=== PATIENT | female | born 1955 ===

== ENCOUNTER 2017-04-22 18:29 | Observation (INO) | payer OTHER ==
[2017-04-22] MEDS ORDERED: Labetalol 5 mg/ml Inj 20ML IV PRN (18:45)
[2017-04-22 18:58] VITALS: O2SAT 100
--- NOTE | 2017-04-22 19:01 | CT ---
PROCEDURE: CT HEAD WITHOUT CONTRAST. HISTORY: right facial numbness COMPARISON: None available. TECHNIQUE: Axial computed tomography images were obtained through the head/brain without intravenous contrast. Radiation dose: Total exam DLP = 899.91 mGy-cm. This CT exam was performed using one or more of the following dose reduction techniques: Automated exposure control, adjustment of the mA and/or kV according to patient size, and/or use of iterative reconstruction technique. FINDINGS: HEMORRHAGE: No intracranial hemorrhage. BRAIN: No mass effect or edema. Mild scattered white matter hypodensities, which are nonspecific, but often seen with chronic microvascular ischemic disease. VENTRICLES: Cavum septum pellucidum, anatomic variant. No hydrocephalus. CALVARIUM: Unremarkable. PARANASAL SINUSES: Unremarkable as visualized. No significant inflammatory changes. MASTOID AIR CELLS: Unremarkable as visualized. No inflammatory changes. OTHER FINDINGS: None. IMPRESSION: Mild scattered nonspecific white matter changes. Please note that MRI with diffusion imaging is more sensitive in the detection of acute ischemic event. Findings discussed with Dr. Woodson on 04/22/17 at 6:59 p.m.
--- NOTE | 2017-04-22 19:06 | ED PDOC ---
Arrival/HPI - General Chief Complaint: Chest Pain Time Seen by Provider: 04/22/17 18:42 Historian: Patient - History of Present Illness Narrative History of Present Illness (Text): 04/22/17 19:06 A 61 year old female, whose past medical history includes hypertension, presents to the emergency department complaining of right sided facial numbness since 17:30 today. Patient reports unsteady gait, a mild headache and non- radiating chest discomfort. Patient recently had her blood pressure medication changed due to uncontrolled hypertension. No prior history of CAD or CVA. Patient denies any other deficits, vision changes, fever, chills, nausea, vomiting, abdominal pain, shortness of breath or any other complaints. Time/Duration: Other (05:30 today) Past Medical History - Provider Review Nursing Documentation Reviewed: Yes - Infectious Disease Hx of Infectious Diseases: None - Cardiac Hx Hypertension: Yes - Psychiatric Hx Substance Use: No Family/Social History - Physician Review Nursing Documentation Reviewed: Yes Family/Social History: No Known Family HX Smoking Status: Never Smoked Hx Alcohol Use: No Hx Substance Use: No Allergies/Home Meds Allergies/Adverse Reactions: Allergies No Known Allergies Allergy (Verified 04/22/17 18:36) Home Medications: Home Meds Medication Instructions Recorded Confirmed Unobtainable 04/22/17 04/22/17 Review of Systems - Physician Review All systems were reviewed & negative as marked: Yes - Review of Systems Constitutional: absent: Fevers, Night Sweats Eyes: absent: Vision Changes Respiratory: absent: SOB Cardiovascular: Chest Pain Gastrointestinal: absent: Abdominal Pain, Nausea, Vomiting Neurological: Headache, Focal Weakness (right sided facial numbness), Gait Changes (unsteady gait) Physical Exam Vital Signs Reviewed: Yes Vital Signs Temp Pulse Resp BP Pulse Ox 04/22/17 19:45 48 L 16 122/67 100 04/22/17 18:59 98 F 51 L 16 130/75 100 04/22/17 18:39 58 L 14 155/74 H 100 Temperature: Afebrile Blood Pressure: Hypertensive Pulse: Bradycardic Respiratory Rate: Normal Appearance: Positive for: Well-Appearing, Non-Toxic, Comfortable Pain Distress: None Mental Status: Positive for: Alert and Oriented X 3 - Systems Exam Head: Present: Atraumatic, Normocephalic Pupils: Present: PERRL Extroacular Muscles: Present: EOMI Conjunctiva: Present: Normal Mouth: Present: Moist Mucous Membranes Neck: Present: Normal Range of Motion. No: JVD Respiratory/Chest: Present: Clear to Auscultation (in all lung francois), Good Air Exchange. No: Respiratory Distress, Accessory Muscle Use Cardiovascular: Present: Regular Rate and Rhythm, Normal S1, S2. No: Murmurs Abdomen: Present: Normal Bowel Sounds. No: Tenderness, Distention, Peritoneal Signs, Rebound, Guarding Back: Present: Normal Inspection Upper Extremity: Present: Normal Inspection. No: Cyanosis, Edema Lower Extremity: Present: Normal Inspection. No: Edema Neurological: Present: GCS=15, CN II-XII Intact, Speech Normal, Motor Func Grossly Intact (equal strength 5/5 bilaterally), Gait Normal, Other (No facial asymmetry, no neurological deficits). No: Normal Sensory Function (Questional decreased sensation to right side of face) Skin: Present: Warm, Dry, Normal Color. No: Rashes Psychiatric: Present: Alert, Oriented x 3, Normal Insight, Normal Concentration Medical Decision Making ED Course and Treatment: 04/22/17 19:06 Impression: A 61 year old female with right sided facial numbness. Patient notes unsteady gait, mild headache and non-radiating chest pain. Plan: -- Head CT -- Chest xray -- EKG -- Labs -- Urinalysis -- Aspirin and K-dur -- Reassess and disposition Progress Notes: Case discussed with neurologist Dr. Cardona, who reports patient is not a candidate for tPA due to low NIH score of 1. Patient will be treated medically for hypertension and possible stroke. - Lab Interpretations Lab Results: 04/22/17 18:42 04/22/17 18:42 Lab Results 04/22/17 18:42: Sodium 140, Potassium 3.2 L, Chloride 99, Carbon Dioxide 29, Anion Gap 15, BUN 10, Creatinine 0.8, Est GFR ( Amer) > 60, Est GFR (Non- Af Amer) > 60, Random Glucose 101, Calcium 10.2, Total Bilirubin 0.7, AST 41 H, ALT 31, Alkaline Phosphatase 76, Troponin I < 0.01, Total Protein 7.9, Albumin 4.4, Globulin 3.5, Albumin/Globulin Ratio 1.3, Triglycerides 62, Cholesterol 180 , LDL Cholesterol Direct 86, HDL Cholesterol 67 H 04/22/17 18:42: PT 11.3, INR 0.99 04/22/17 18:42: WBC 8.2, RBC 3.98, Hgb 11.8 L, Hct 35.5 L, MCV 89.2, MCH 29.6, MCHC 33.2, RDW 11.8, Plt Count 347, MPV 9.9, Gran % 37.5 L, Lymph % (Auto) 55.0 H, [place] % (Auto) 6.5 H, Eos % (Auto) 0.9 L, Baso % (Auto) 0.1, Gran # 3.07, Lymph # (Auto) 4.5 H, [place] # (Auto) 0.5, Eos # (Auto) 0.1, Baso # (Auto) 0.01 I have reviewed the lab results: Yes - RAD Interpretation Radiology Orders: 04/22/17 18:44 HEAD W/O (CODE STROKE) [CT] Stat 04/22/17 18:48 CHEST PORTABLE [RAD] Stat - Medication Orders Current Medication Orders: Discontinued Medications Aspirin (Aspirin) 325 mg PO STAT STA Stop: 04/22/17 19:16 Last Admin: 04/22/17 19:33 Dose: 325 mg Potassium Chloride (K-Dur 20 Meq Er Tab) 20 meq PO STAT STA Stop: 04/22/17 19:38 NIHSS Scale ([place]) Time Performed: 18:42 - How Severe is the Stoke Baseline Level of Consciousness: 0=Alert LOC to Questions: 0=Both comments correct LOC to commands: 0=Obeys both correctly Best Gaze: 0=Normal Visual: 0=No visual loss Facial: 0=Normal Motor Arm - Left: 0=No drift Motor Arm - Right: 0=No drift Motor Leg - Left: 0=No drift Motor Leg - Right: 0=No drift Limb Ataxia: 0=Absent Sensory: 1=Mild to moderate loss Best Language: 0=No aphasia Dysarthia: 0=Normal articulation Extinction & Inattention (Neglect): 0=Normal, no object Score: 1 Risk Level: Minor Stroke Risk rTPA Inclusion/Exclusion - Refusal of Treatment Patient Refused Treatment: No - Inclusion Criteria for Altepase Patient is 18 years or Older: Yes The Clinical Diagnosis of Ischemic Stroke That is Causing a Potentially Disabling Neurological Deficit: No Time of Onset is Well Established to be Less Than 270 Minute Before Treatment Would Begin: Yes Risk/Benefit Discussed With Patient/Family Member Present: No Disposition/Present on Arrival - Present on Arrival Any Indicators Present on Arrival: No History of DVT/PE: No History of Uncontrolled Diabetes: No Urinary Catheter: No History of Decub. Ulcer: No History Surgical Site Infection Following: None - Disposition Have Diagnosis and Disposition been Completed?: Yes Diagnosis: CVA (cerebral vascular accident) Disposition: HOSPITALIZED Disposition Time: 20:10 Patient Plan: Admission Condition: IMPROVED Referrals: Eagle Oneill MD [Primary Care Provider] - Follow up with primary Forms: [facility] ([place]ian)
[2017-04-22 19:11] LABS: ALB/GLOB RATIO 1.3 (1.1-1.8); ALBUMIN 4.4 g/dL (3.0-4.8); ALT/SGPT 31 U/L (7-56); AST/SGOT 41 U/L (14-36); BLOOD UREA NITROGEN 10 mg/dL (7-21); CALCIUM 10.2 mg/dL (8.4-10.5); GFR AFRICAN-AMERICAN > 60; GFR NON-AFRICAN AMERICAN > 60; HDL CHOLESTEROL 67 mg/dL (29-60)
[2017-04-22 19:21] LABS: LDL CHOLESTEROL 86 mg/dL (0-129); TROPONIN I < 0.01 ng/mL
[2017-04-22] MEDS ORDERED: Potassium Chloride 20 mEq ER Tab PO STA ×2 (19:37→20:23)
[2017-04-22 19:51] LABS: BASO # 0.01 K/mm3 (0.0-2.0); BASO % 0.1 % (0.0-3.0); EOS # 0.1 (0.0-0.7); EOS % 0.9 % (1.5-5.0); GRAN # 3.07 (1.4-6.5); GRAN % 37.5 % (50.0-68.0); HEMOGLOBIN 11.8 g/dL (12.0-16.0); LYMPH # 4.5 (1.2-3.4); MEAN CELL VOLUME 89.2 fl (80.0-105.0); MEAN CORPUSCULAR HEMOGLOBIN 29.6 pg (25.0-35.0); MEAN CORPUSCULAR HGB CONC 33.2 g/dl (31.0-37.0); MEAN PLATELET VOLUME 9.9 fl (7.0-11.0); MONO # 0.5 (0.1-0.6); MONO % 6.5 % (1.0-6.0); RBC 3.98 10^6/uL (3.5-6.1); RED CELL DISTRIBUTION WIDTH 11.8 % (11.5-14.5); WHITE BLOOD COUNT 8.2 10^3/ul (4.5-11.0)
[2017-04-22 19:55] LABS: INR 0.99 (0.93-1.08); PROTHROMBIN TIME 11.3 SECONDS (9.4-12.5)
[2017-04-22 20:07] LABS: PH,URINE 6.5 (4.7-8.0); URINE BILIRUBIN NEGATIVE (NEGATIVE); URINE BLOOD TRACE-INTACT (NEGATIVE); URINE GLUCOSE (UA) NEGATIVE (NEGATIVE); URINE LEUKOCYTE ESTERASE SMALL Leu/uL (NEGATIVE); URINE NITRATE NEGATIVE (NEGATIVE); URINE PROTEIN NEGATIVE mg/dL (<30 mg/dL); URINE UROBILINOGEN 0.2 E.U./dL (<1 E.U./dL)
[2017-04-22 20:23] LABS: URINE APPEARANCE CLEAR (CLEAR); URINE COLOR STRAW (YELLOW)
[2017-04-22 20:50] LABS: URINE BACTERIA SMALL (NEG); URINE EPITHELIAL CELLS 0 - 2 /hpf (0-5); URINE RBC 0 - 2 /hpf (0-2)
--- NOTE | 2017-04-22 21:00 | CP.PCM.HP ---
<Natali Grimm - Last Filed: 04/22/17 23:20> History of Present Illness - History of Present Illness History of Present Illness: This patient is a 61 year old female with a PMHx of hypertension and HLD who presents with complaints of right sided facial numbness and non-radiating "pinching" 6-8/10 chest pain that started at 17:30 today. Patient denies any triggering event. She states she was slightly short of breath when her symptoms occurred but hasn't been since she has been in the ED. Associated with the chest pain and facial numbness are palpitations, headache, and slight dizziness. Patient states she has been getting palpitations on and off for the past couple of months. She currently denies any focal muscle weakness or sensory loss but states that she felt unbalanced when entering the ED and needed assistance from her daughter. She was able to ambulate to the restroom herself while in the ED. She denies any fevers, nausea, vomiting, current SOB, abdominal pain, or any urinary symptoms. Her facial numbness has resolved since being in the ED. ROS: As stated above PMHx: HTN, HLD, PSHx: Appendectomy, Removal of benign breast mass Allergeis: NKDA SocialHx: Denies tobacco, alcohol, or illicit drug use FamHx: Mother - [place] Disease Meds: Reviewed PMD: Dr. Eagle Oneill Present on Admission - Present on Admission Any Indicators Present on Admission: No Review of Systems - Review of Systems Review of Systems: As per HPI Past Patient History - Infectious Disease Hx of Infectious Diseases: None - Past Social History Smoking Status: Never Smoked - CARDIAC Hx Hypertension: Yes - PSYCHIATRIC Hx Substance Use: No - SURGICAL HISTORY Hx Surgeries: No Meds Allergies/Adverse Reactions: Allergies Allergy/AdvReac Type Severity Reaction Status Date / Time No Known Allergies Allergy Verified 04/22/17 22:08 Physical Exam - Constitutional Appears: Well, Non-toxic, No Acute Distress - Head Exam Head Exam: ATRAUMATIC, NORMAL INSPECTION, NORMOCEPHALIC - Eye Exam Eye Exam: EOMI, Normal appearance, PERRL - ENT Exam ENT Exam: Mucous Membranes Moist - Neck Exam Neck exam: Positive for: Normal Inspection - Respiratory Exam Respiratory Exam: Clear to Auscultation Bilateral, NORMAL BREATHING PATTERN. absent: Accessory Muscle Use, Respiratory Distress - Cardiovascular Exam Cardiovascular Exam: Bradycardia, REGULAR RHYTHM, +S1, +S2. absent: JVD - GI/Abdominal Exam GI & Abdominal Exam: Normal Bowel Sounds, Soft. absent: Tenderness - Extremities Exam Extremities exam: Positive for: normal capillary refill, normal inspection. Negative for: pedal edema - Neurological Exam Neurological exam: Alert, CN II-XII Intact, Oriented x3 Additional comments: 5/5 Motor Strength in Upper Lower Ext. B/L. - Psychiatric Exam Psychiatric exam: Normal Affect, Normal Mood - Skin Skin Exam: Dry, Intact, Normal Color, Warm Results - Vital Signs Recent Vital Signs: Last Vital Signs Temp 98 F 04/22/17 18:59 Pulse 48 L 04/22/17 19:45 Resp 16 04/22/17 19:45 BP 122/67 04/22/17 19:45 Pulse Ox 100 04/22/17 19:45 - Labs Result Diagrams: 04/22/17 18:42 04/22/17 18:42 Labs: Laboratory Results - last 24 hr 04/22/17 04/22/17 04/22/17 18:42 18:42 18:42 WBC 8.2 RBC 3.98 Hgb 11.8 L Hct 35.5 L MCV 89.2 MCH 29.6 MCHC 33.2 RDW 11.8 Plt Count 347 MPV 9.9 Gran % 37.5 L Lymph % (Auto) 55.0 H [place] % (Auto) 6.5 H Eos % (Auto) 0.9 L Baso % (Auto) 0.1 Gran # 3.07 Lymph # (Auto) 4.5 H [place] # (Auto) 0.5 Eos # (Auto) 0.1 Baso # (Auto) 0.01 PT 11.3 INR 0.99 Sodium 140 Potassium 3.2 L Chloride 99 Carbon Dioxide 29 Anion Gap 15 BUN 10 Creatinine 0.8 Est GFR ( Amer) > 60 Est GFR (Non-Af Amer) > 60 Random Glucose 101 Calcium 10.2 Total Bilirubin 0.7 AST 41 H ALT 31 Alkaline Phosphatase 76 Troponin I < 0.01 Total Protein 7.9 Albumin 4.4 Globulin 3.5 Albumin/Globulin Ratio 1.3 Triglycerides 62 Cholesterol 180 LDL Cholesterol Direct 86 HDL Cholesterol 67 H Urine Color Urine Appearance Urine pH Ur Specific [place] Urine Protein Urine Glucose (UA) Urine Ketones Urine Blood Urine Nitrate Urine Bilirubin Urine Urobilinogen Ur Leukocyte Esterase Urine RBC Urine WBC Ur Epithelial Cells Urine Bacteria 04/22/17 19:55 WBC RBC Hgb Hct MCV MCH MCHC RDW Plt Count MPV Gran % Lymph % (Auto) [place] % (Auto) Eos % (Auto) Baso % (Auto) Gran # Lymph # (Auto) [place] # (Auto) Eos # (Auto) Baso # (Auto) PT INR Sodium Potassium Chloride Carbon Dioxide Anion Gap BUN Creatinine Est GFR ( Amer) Est GFR (Non-Af Amer) Random Glucose Calcium Total Bilirubin AST ALT Alkaline Phosphatase Troponin I Total Protein Albumin Globulin Albumin/Globulin Ratio Triglycerides Cholesterol LDL Cholesterol Direct HDL Cholesterol Urine Color Straw Urine Appearance Clear Urine pH 6.5 Ur Specific [place] <= 1.005 Urine Protein Negative Urine Glucose (UA) Negative Urine Ketones Negative Urine Blood Trace-intact H Urine Nitrate Negative Urine Bilirubin Negative Urine Urobilinogen 0.2 Ur Leukocyte Esterase Small H Urine RBC 0 - 2 Urine WBC 1 - 3 Ur Epithelial Cells 0 - 2 Urine Bacteria Small Assessment & Plan - Assessment and Plan (Free Text) Assessment: 61 year old female with a PMHx of hypertension and HLD who presents with complaints of right sided facial numbness and non-radiating "pinching" 6-8/10 chest pain. Admitted for evaluation and treatment of chest pain and facial numbness. Plan: Chest Pain R/O ACS: 1st. Troponin was negative. EKG (Adm): Sinus Bradycardia ASA 325 Given in ED CXR: Negative for Acute Disease Process. PENDING Official Read. Serial Troponins/EKG TSH/Free T4 Cardiology Consult (Dr. Mazariegos) Cont. Home Medications: Metoprolol, ASA, Cozaar, Lipitor Right Sided Facial Numbness. R/O CVA (Resolved) NIHSS Scale of 1 Neurology Consulted (Dr. Cardona) in ED. Recommended ASA 325 CT Head (Adm): Mild scattered nonspecific white matter changes. Facial Numbness Resolved. Hypokalemia Corrected in ED. F/U Mg/Phos ASA Daily Q2H Neuro Checks/Vital Signs PT Speech Hypokalemia 40 MeQ Potassium Given in ED F/U Mg Hx of HLD: Normal Lipid Panel in ED Cont. Home Meds: Lipitor 20 HS. Switched from Home Zocor 40 Hx of HTN Cont. Home Meds: Losartan 50 Dialy HCTZ 12.5 Daily Proph PPX/Lovenox/Home Vitamin D/Heart Health Diet. Patient seen and discussed with Attending Natali Grimm, PGY1 <Gurpreet Bailey - Last Filed: 04/23/17 00:24> Results - Vital Signs Recent Vital Signs: Last Vital Signs Temp 98 F 04/22/17 22:09 Pulse 89 04/22/17 22:09 Resp 16 04/22/17 22:09 BP 117/70 04/22/17 22:09 Pulse Ox 100 04/22/17 21:15 - Labs Result Diagrams: 04/22/17 18:42 04/22/17 18:42 Attending/Attestation - Attestation I have personally seen and examined this patient.: Yes I have fully participated in the care of the patient.: Yes I have reviewed all pertinent clinical information: Yes Notes (Text): 04/23/17 00:19 Patient was seen when she was in bed # 17 in the ER. Agree with history , physical examination, assessment and plan. History obtaine with help of daughter.Stated that her mother was falling down towards left side. Following are my impressions. TIA. Right facial numbness. Chest pain. HTN. Obesity. Chronic headache. Family history of HTN. Family history of heart disease. Hyperopia. Tinitus. GERD. HLD. History appendectomy. History right breast lumpectomy.
[2017-04-22 22:29] VITALS: BMI 32.1
[2017-04-22] MEDS ORDERED: Influenza Vaccine 60 mcg/0.5 mL SYR (4YR UP) IM ONE (22:29)
[2017-04-22] MEDS ORDERED: Pneumococcal 23-Valent Vaccine IM ONE (22:29)
[2017-04-23 00:32] LABS: FREE T4 1.16 ng/dL (0.78-2.19)
[2017-04-23] MEDS: Pantoprazole 40 mg EC Tab PO SCH (06:11)
[2017-04-23 07:39] LABS: BASO # 0.01 K/mm3 (0.0-2.0); BASO % 0.2 % (0.0-3.0); EOS % 0.8 % (1.5-5.0); GRAN # 2.35 (1.4-6.5); GRAN % 44.2 % (50.0-68.0); HEMOGLOBIN 11.7 g/dL (12.0-16.0); LYMPH # 2.5 (1.2-3.4); LYMPH % 47.7 % (22.0-35.0); MEAN CELL VOLUME 90.1 fl (80.0-105.0); MEAN CORPUSCULAR HEMOGLOBIN 29.6 pg (25.0-35.0); MEAN CORPUSCULAR HGB CONC 32.9 g/dl (31.0-37.0); MEAN PLATELET VOLUME 9.3 fl (7.0-11.0); MONO # 0.4 (0.1-0.6); MONO % 7.1 % (1.0-6.0); RBC 3.95 10^6/uL (3.5-6.1); RED CELL DISTRIBUTION WIDTH 11.8 % (11.5-14.5); WHITE BLOOD COUNT 5.3 10^3/ul (4.5-11.0)
[2017-04-23 07:56] LABS: ALB/GLOB RATIO 1.2 (1.1-1.8); ALBUMIN 3.8 g/dL (3.0-4.8); ALT/SGPT 31 U/L (7-56); AST/SGOT 36 U/L (14-36); BLOOD UREA NITROGEN 9 mg/dL (7-21); CALCIUM 9.7 mg/dL (8.4-10.5); GFR AFRICAN-AMERICAN > 60; GFR NON-AFRICAN AMERICAN > 60
[2017-04-23 08:02] LABS: TROPONIN I < 0.01 ng/mL
--- NOTE | 2017-04-23 08:49 | RAD ---
HISTORY: code stroke COMPARISON: No prior. FINDINGS: LUNGS: No active pulmonary disease. PLEURA: No significant pleural effusion identified, no pneumothorax apparent. CARDIOVASCULAR: Normal. OSSEOUS STRUCTURES: No significant abnormalities. VISUALIZED UPPER ABDOMEN: Normal. OTHER FINDINGS: None. IMPRESSION: No active disease.
--- NOTE | 2017-04-23 09:07 | CP.PCM.CON ---
History of Present Illness - History of Present Illness History of Present Illness: Neurology consult note: 61 year old female with a PMHx of HTN and HLD who presents with complaints of right sided facial numbness and chest pain x 1 day. Pt states that yesterday at 17:00 yesterday where started feeling chest pain and R sided facial numbness. She denies any focal neurological symptoms slurred speech or facial droop. Patient denies any triggering event. She does complain of L sided chest pain that is non radiating, and associated with palpitations. Patient also compalins of , headache, slight dizziness and feeling unbalanced when entering the ED needing assistance from her daughter. Her facial numbness, weakness, and headaches has resolved since being in the ED. 12 Point ROS performed and neg other than stated above PMHx: HTN and HLD, PSHx: Appendectomy, Removal of benign breast mass Allergeis: NKDA SocialHx: Denies tobacco, alcohol, or illicit drug use FmHx: Mother - [place] Disease Review of Systems - Review of Systems All systems: reviewed and no additional remarkable complaints except Past Patient History - Infectious Disease Hx of Infectious Diseases: None - Past Social History Smoking Status: Never Smoked - CARDIAC Hx Hypertension: Yes - PULMONARY Hx Respiratory Disorders: No - NEUROLOGICAL Hx Neurological Disorder: Yes HX Cerebrovascular Accident: Yes (04-22-17) Hx Dizziness: Yes Hx Transient Ischemic Attacks (TIA): Yes (04-22-17) - HEENT Hx HEENT Problems: No - RENAL Hx Chronic Kidney Disease: No - ENDOCRINE/METABOLIC Hx Endocrine Disorders: No - HEMATOLOGICAL/ONCOLOGICAL Hx Blood Disorders: No - INTEGUMENTARY Hx Dermatological Problems: Yes ([place]) - MUSCULOSKELETAL/RHEUMATOLOGICAL Hx Musculoskeletal Disorders: No Hx Falls: No - GASTROINTESTINAL Hx Gastrointestinal Disorders: No - GENITOURINARY/GYNECOLOGICAL Hx Genitourinary Disorders: Yes Hx Hematuria: Yes - PSYCHIATRIC Hx Substance Use: No - SURGICAL HISTORY Hx Surgeries: No Meds Allergies/Adverse Reactions: Allergies Allergy/AdvReac Type Severity Reaction Status Date / Time No Known Allergies Allergy Verified 04/22/17 22:08 - Medications Medications: Current Medications Aspirin (Ecotrin) 81 mg PO DAILY [facility] Atorvastatin Calcium (Lipitor) 20 mg PO DIN [facility] Cholecalciferol (Vitamin D) 1,000 intlu PO DAILY [facility] Enoxaparin Sodium (Lovenox) 40 mg SC DAILY [facility] PRN Reason: Protocol Hydrochlorothiazide (Microzide) 12.5 mg PO DAILY [facility] Losartan Potassium (Cozaar) 50 mg PO DAILY [facility] Metoprolol Tartrate (Lopressor) 50 mg PO DAILY [facility] Pantoprazole Sodium (Protonix Ec Tab) 40 mg PO 0600 [facility] Last Admin: 04/23/17 06:11 Dose: 40 mg Physical Exam - Constitutional Appears: No Acute Distress - Head Exam Head Exam: ATRAUMATIC, NORMOCEPHALIC - Eye Exam Eye Exam: EOMI, PERRL Pupil Exam: NORMAL ACCOMODATION - ENT Exam ENT Exam: Mucous Membranes Moist - Respiratory Exam Respiratory Exam: Clear to Auscultation Bilateral. absent: Rales, Wheezes - Cardiovascular Exam Cardiovascular Exam: REGULAR RHYTHM, +S1, +S2 - GI/Abdominal Exam GI & Abdominal Exam: Normal Bowel Sounds, Soft. absent: Distended, Tenderness - Extremities Exam Extremities exam: Negative for: calf tenderness, pedal edema - Neurological Exam Neurological exam: Alert, CN II-XII Intact, Oriented x3, Reflexes Normal - Expanded Neurological Exam Expanded Patient oriented to: person, place, time Cranial nerves: EOM's Intact: Normal, Tongue Deviation: Normal Cerebellar Function: Finger to Nose: Normal Sensory exam: Lower Extremity Light Touch: Normal, Upper Extremity Light Touch: Normal Neuro motor strength exam: Left Upper Extremity: 5, Right Upper Extremity: 5, Left Lower Extremity: 5, Right Lower Extremity: 5 Results - Vital Signs Recent Vital Signs: Last Vital Signs Temp 98.5 F 04/23/17 06:00 Pulse 54 L 04/23/17 06:00 Resp 20 04/23/17 06:00 BP 115/56 L 04/23/17 06:00 Pulse Ox 100 04/23/17 06:00 - Labs Result Diagrams: 04/23/17 07:30 04/23/17 07:30 Labs: Laboratory Results - last 24 hr 04/23/17 04/23/17 07:30 07:30 WBC 5.3 D RBC 3.95 Hgb 11.7 L Hct 35.6 L MCV 90.1 MCH 29.6 MCHC 32.9 RDW 11.8 Plt Count 296 MPV 9.3 Gran % 44.2 L Lymph % (Auto) 47.7 H [place] % (Auto) 7.1 H Eos % (Auto) 0.8 L Baso % (Auto) 0.2 Gran # 2.35 Lymph # (Auto) 2.5 [place] # (Auto) 0.4 Eos # (Auto) 0.0 Baso # (Auto) 0.01 Sodium 144 Potassium 3.8 Chloride 105 Carbon Dioxide 27 Anion Gap 15 BUN 9 Creatinine 0.7 Est GFR ( Amer) > 60 Est GFR (Non-Af Amer) > 60 Random Glucose 92 Calcium 9.7 Total Bilirubin 0.9 AST 36 ALT 31 Alkaline Phosphatase 60 Troponin I < 0.01 Total Protein 6.9 Albumin 3.8 Globulin 3.1 Albumin/Globulin Ratio 1.2 Assessment & Plan - Assessment and Plan (Free Text) Assessment: 61 year old female with a PMHx of HTN and HLD who presents with complaints of right sided facial numbness and chest pain x 1 day. - CTH - negative - MRI of brain w/o contrast ordered - Ordered Echo - will follow up - Ordered Carotid US - will follow up - Continue Asprin and statin - F/u cardiology recs - Replete electrolytes as needed - PT and OT Case and plan was reviewed and discussed in detail with Dr Cardona.
[2017-04-23] MEDS: Enoxaparin 40 mg Syringe SC SCH (11:27)
[2017-04-23] MEDS: Cholecalciferol 1,000 INTLU TAB PO SCH (11:27)
--- NOTE | 2017-04-23 11:34 | CP.PCM.PN ---
<Mara Gutiérrez - Last Filed: 04/23/17 11:30> Subjective - Date & Time of Evaluation Date of Evaluation: 04/23/17 Time of Evaluation: 11:30 - Subjective Subjective: Mara Gutiérrez, PGY1, Medicine Progress Note for Dr Truong: Patient seen and examined at bedside. No acute events overnight. Pt remains dizzy upon getting up from bed and ambulating to the bathroom, pt has positive orthostatic vitals. Currently denies cp, right sided facial numbness, dysarthria , focal deficits, vision changes, n/v/abdominal pain, palpitations, headache. Objective - Vital Signs/Intake and Output Vital Signs (last 24 hours): Temp Pulse Resp BP Pulse Ox 98.5 F 76 20 115/56 L 100 04/23/17 06:00 04/23/17 10:00 04/23/17 06:00 04/23/17 06:00 04/23/17 06:00 Intake and Output: 04/23/17 04/23/17 06:59 18:59 Intake Total 125 Balance 125 - Medications Medications: Current Medications Aspirin (Ecotrin) 81 mg PO DAILY [facility] Atorvastatin Calcium (Lipitor) 20 mg PO DIN [facility] Cholecalciferol (Vitamin D) 1,000 intlu PO DAILY [facility] Enoxaparin Sodium (Lovenox) 40 mg SC DAILY [facility] PRN Reason: Protocol Hydrochlorothiazide (Microzide) 12.5 mg PO DAILY [facility] Losartan Potassium (Cozaar) 50 mg PO DAILY [facility] Metoprolol Tartrate (Lopressor) 50 mg PO DAILY [facility] Pantoprazole Sodium (Protonix Ec Tab) 40 mg PO 0600 [facility] Last Admin: 04/23/17 06:11 Dose: 40 mg - Labs Labs: 04/23/17 07:30 04/23/17 07:30 PT 11.3 SECONDS (9.4-12.5) 04/22/17 18:42 INR 0.99 (0.93-1.08) 04/22/17 18:42 - Constitutional Appears: Non-toxic, No Acute Distress - Head Exam Head Exam: ATRAUMATIC, NORMOCEPHALIC - Eye Exam Eye Exam: EOMI, PERRL. absent: Conjunctival injection, Scleral icterus Pupil Exam: NORMAL ACCOMODATION, PERRL. absent: Irregular, Miosis, Unequal - ENT Exam ENT Exam: Mucous Membranes Moist - Neck Exam Neck Exam: Full ROM - Respiratory Exam Respiratory Exam: Clear to Ausculation Bilateral, NORMAL BREATHING PATTERN. absent: Chest Wall Tenderness, Rhonchi, Wheezes, Respiratory Distress - Cardiovascular Exam Cardiovascular Exam: REGULAR RHYTHM, RRR, +S1, +S2. absent: Murmur - GI/Abdominal Exam GI & Abdominal Exam: Soft, Normal Bowel Sounds. absent: Distended, Tenderness, Mass, Organomegaly, Rebound - Extremities Exam Extremities Exam: Normal Inspection. absent: Calf Tenderness, Pedal Edema - Back Exam Back Exam: NORMAL INSPECTION - Neurological Exam Neurological Exam: Alert, Awake, CN II-XII Intact (except V3 on right side of face, decreased sensation.), Oriented x3, Reflexes Normal. absent: Motor Sensory Deficit Neuro motor strength exam: Left Upper Extremity: 5, Right Upper Extremity: 5, Left Lower Extremity: 5, Right Lower Extremity: 5 Additional comments: Neg Reyna Rooney pike maneuver - Psychiatric Exam Psychiatric exam: Normal Affect, Normal Mood - Skin Skin Exam: Dry, Normal Color, Warm Assessment and Plan - Assessment and Plan (Free Text) Assessment: 61 year old female with a PMHx of hypertension and HLD, presents with complaints of right sided facial numbness, dizziness, chest pain: Chest Pain, R/O ACS: Troponin negative x2 EKG (Adm): Sinus Bradycardia 57. No ST/T wave changes. ASA 325 Given in ED CXR: Negative for Acute Disease Process. PENDING Official Read. TSH/Free T4 nrml. Cardiology Consult (Dr. Mazariegos). appreciate recs. Cont. Home Medications: Metoprolol, ASA, Cozaar, Lipitor. Held home HCTZ in setting of dizziness. Right Sided Facial Numbness. 2/2 TIA vs CVA Facial Numbness Resolved. NIHSS Scale of 1 Neurology Consulted (Dr. Cardona) in ED for code stroke. Recommended ASA 325; no tPA administered. CT Head (Adm): Mild scattered nonspecific white matter changes. Hypokalemia Corrected in ED. ASA Daily Q2H Neuro Checks PT Speech Neuro c/s. appreciate recs f/u carotid doppler, mri head. Dizziness: 2/2 orthostatic vs posterior cerebral stoke vs vestibular neuritis + Orthostatics hold home HCTZ Will instruct pt to change position slowly/dangling leg at bedside before getting up to supine position. Reyna rooney pike maneuver negative Will obtain MRI head Hypokalemia resolved 40 MeQ Potassium Given in ED Hx of HLD: Normal Lipid Panel in ED Cont. Home Meds: Lipitor 20 HS. Switched from Home Zocor 40 Hx of HTN Cont. Home Meds: Losartan 50 Dialy Held home HCTZ 12.5 Daily in setting of dizziness Proph PPX/Lovenox/Home Vitamin D/Heart Health Diet. Patient seen and discussed with Attending, Dr Truong. <Sidra Truong - Last Filed: 04/24/17 09:51> Objective - Vital Signs/Intake and Output Vital Signs (last 24 hours): Temp Pulse Resp BP Pulse Ox 98.4 F 83 20 111/51 L 100 04/24/17 06:00 04/24/17 09:42 04/24/17 06:00 04/24/17 09:42 04/24/17 06:00 Intake and Output: 04/24/17 04/24/17 06:59 18:59 Intake Total 1950 Balance 1950 - Medications Medications: Current Medications Aspirin (Ecotrin) 81 mg PO DAILY [facility] Last Admin: 04/24/17 09:40 Dose: 81 mg Atorvastatin Calcium (Lipitor) 20 mg PO DIN [facility] Last Admin: 04/23/17 17:29 Dose: 20 mg Cholecalciferol (Vitamin D) 1,000 intlu PO DAILY [facility] Last Admin: 04/24/17 09:43 Dose: 1,000 intlu Enoxaparin Sodium (Lovenox) 40 mg SC DAILY [facility] PRN Reason: Protocol Last Admin: 04/24/17 09:42 Dose: 40 mg Hydrochlorothiazide (Microzide) 12.5 mg PO DAILY [facility] Last Admin: 04/23/17 11:31 Dose: Not Given Sodium Chloride (Sodium Chloride 0.9%) 1,000 mls @ 150 mls/hr IV .Q6H40M [facility] Last Admin: 04/24/17 02:00 Dose: 150 mls/hr Losartan Potassium (Cozaar) 50 mg PO DAILY [facility] Last Admin: 04/24/17 09:40 Dose: 50 mg Metoprolol Tartrate (Lopressor) 50 mg PO DAILY [facility] Last Admin: 04/24/17 09:42 Dose: 50 mg Pantoprazole Sodium (Protonix Ec Tab) 40 mg PO 0600 [facility] Last Admin: 04/24/17 05:33 Dose: 40 mg - Labs Labs: 04/24/17 07:00 04/24/17 07:00 PT 11.3 SECONDS (9.4-12.5) 04/22/17 18:42 INR 0.99 (0.93-1.08) 04/22/17 18:42 Attending/Attestation - Attestation I have personally seen and examined this patient.: Yes I have fully participated in the care of the patient.: Yes I have reviewed all pertinent clinical information, including history, physical exam and plan: Yes Notes (Text): 04/24/17 09:50 Patient was seen and examined with medical officer psychiatry. Agreed with assessment and plan. Management plan was discussed in detail with patient. Education was provided.
[2017-04-23] MEDS: Sodium Chloride 0.9% 100 ML IV SCH ×5 (11:40→15:24)
--- NOTE | 2017-04-23 13:22 | US ---
PROCEDURE: Bilateral carotid artery duplex ultrasound HISTORY: Carotid stenosis TIA PHYSICIAN(S): Julian Francis MD. TECHNIQUE: Duplex sonography and color-flow Doppler were used to evaluate the carotid bifurcations and limited segments of the vertebral arteries bilaterally. FINDINGS: There is mild smooth hypoechoic plaque noted at the carotid bifurcations bilaterally. The peak systolic velocity in the proximal right internal carotid artery is 76 cm/sec. This corresponds to a 20 to 39% proximal right ICA stenosis. Normal systolic velocities are noted in the proximal right external carotid artery. There is antegrade flow in the right vertebral artery. The peak systolic velocity in the proximal left internal carotid artery is 80 cm/sec. This corresponds to a 20 to 39% proximal left ICA stenosis. Normal systolic velocities are noted in the proximal left external carotid artery. There is antegrade flow in the dominant left vertebral artery. IMPRESSION: 1. Bilateral 20-39% proximal ICA stenoses. 2. Antegrade flow in both vertebral arteries.
[2017-04-23] MEDS: Sodium Chloride 0.9% 1,000 ML IV SCH ×2 (15:28→20:00)
--- NOTE | 2017-04-23 18:53 | CARD ---
APPROVED REPORT EXAM: Two-dimensional and M-mode echocardiogram with Doppler and color Doppler. INDICATION CVA/TIA 2D DIMENSIONS Left Atrium (2D)3.5 (1.6-4.0cm)IVSd1.0 (0.7-1.1cm) LVDd4.3 (3.9-5.9cm)PWd1.0 (0.7-1.1cm) LVDs2.7 (2.5-4.0cm)FS (%) 36.2 % LVEF (%)66.2 (>50%) M-Mode DIMENSIONS Aortic Root2.20 (2.2-3.7cm)Aortic Cusp Exc.1.50 (1.5-2.0cm) Aortic Valve AoV Peak Yomazlqt828.0cm/Ethan Peak GR.12mmHg Mitral Valve MV E Mlivsuga95.6cm/sMV A Uzzjytmd62.0cm/sE/A ratio0.9 TDI E/Lateral E'0.0E/Medial E'0.0 Tricuspid Valve TR Peak Jsrgqorw486yz/sRAP [id number] Peak Gr.27mmHg [id number] LEFT VENTRICLE The left ventricle is normal size. There is normal left ventricular wall thickness. The left ventricular function is normal. The left ventricular ejection fraction is within the normal range. There is normal LV segmental wall motion. Transmitral Doppler flow pattern is Grade I-abnormal relaxation pattern. RIGHT VENTRICLE The right ventricle is normal size. There is normal right ventricular wall thickness. The right ventricular systolic function is normal. ATRIA The left atrium size is normal. The right atrium size is normal. AORTIC VALVE The aortic valve is normal in structure. No aortic regurgitation is present. There is no aortic valvular stenosis. MITRAL VALVE The mitral valve is normal in structure. There is no mitral valve regurgitation noted. There is no mitral valve stenosis. TRICUSPID VALVE There is mild tricuspid regurgitation. There is mild pulmonary hypertension. PULMONIC VALVE There is mild pulmonic valvular regurgitation. GREAT VESSELS The aortic root is normal in size. The IVC is normal in size and collapses >50% with inspiration. PERICARDIAL EFFUSION There is no pericardial effusion. <Conclusion> The left ventricle is normal size. There is normal left ventricular wall thickness. The left ventricular function is normal. The left ventricular ejection fraction is within the normal range. There is normal LV segmental wall motion. Transmitral Doppler flow pattern is Grade I-abnormal relaxation pattern. There is mild tricuspid regurgitation. There is mild pulmonary hypertension. There is mild pulmonic valvular regurgitation.
[2017-04-23 21:07] VITALS: RESP 20
--- NOTE | 2017-04-23 22:33 | CARD ---
APPROVED REPORT EKG Measurement Heart [id number] ID [id number] <Conclusion> Sinus bradycardia Otherwise normal ECG
[2017-04-24] MEDS: Sodium Chloride 0.9% 1,000 ML IV SCH (02:00)
[2017-04-24] MEDS: Pantoprazole 40 mg EC Tab PO SCH (05:33)
[2017-04-24 07:42] LABS: BASO # 0.02 K/mm3 (0.0-2.0); BASO % 0.4 % (0.0-3.0); EOS % 0.9 % (1.5-5.0); GRAN # 1.66 (1.4-6.5); GRAN % 36.5 % (50.0-68.0); HEMOGLOBIN 10.7 g/dL (12.0-16.0); LYMPH # 2.5 (1.2-3.4); LYMPH % 55.6 % (22.0-35.0); MEAN CELL VOLUME 90.3 fl (80.0-105.0); MEAN CORPUSCULAR HEMOGLOBIN 29.6 pg (25.0-35.0); MEAN CORPUSCULAR HGB CONC 32.7 g/dl (31.0-37.0); MEAN PLATELET VOLUME 9.3 fl (7.0-11.0); MONO # 0.3 (0.1-0.6); MONO % 6.6 % (1.0-6.0); RBC 3.62 10^6/uL (3.5-6.1); RED CELL DISTRIBUTION WIDTH 11.8 % (11.5-14.5); WHITE BLOOD COUNT 4.6 10^3/ul (4.5-11.0)
[2017-04-24 08:42] LABS: ALB/GLOB RATIO 1.2 (1.1-1.8); ALBUMIN 3.2 g/dL (3.0-4.8); ALT/SGPT 25 U/L (7-56); AST/SGOT 27 U/L (14-36); BLOOD UREA NITROGEN 6 mg/dL (7-21); CALCIUM 8.7 mg/dL (8.4-10.5); GFR AFRICAN-AMERICAN > 60; GFR NON-AFRICAN AMERICAN > 60
[2017-04-24] MEDS: Enoxaparin 40 mg Syringe SC SCH (09:42)
[2017-04-24] MEDS: Cholecalciferol 1,000 INTLU TAB PO SCH (09:43)
--- NOTE | 2017-04-24 10:28 | CP.PCM.PN ---
Subjective - Date & Time of Evaluation Date of Evaluation: 04/24/17 Time of Evaluation: 10:23 Objective - Vital Signs/Intake and Output Vital Signs (last 24 hours): Temp Pulse Resp BP Pulse Ox 98.4 F 83 20 111/51 L 100 04/24/17 06:00 04/24/17 09:42 04/24/17 06:00 04/24/17 09:42 04/24/17 06:00 Intake and Output: 04/24/17 04/24/17 06:59 18:59 Intake Total 1950 Balance 1950 - Medications Medications: Current Medications Aspirin (Ecotrin) 81 mg PO DAILY [facility] Last Admin: 04/24/17 09:40 Dose: 81 mg Atorvastatin Calcium (Lipitor) 20 mg PO DIN [facility] Last Admin: 04/23/17 17:29 Dose: 20 mg Cholecalciferol (Vitamin D) 1,000 intlu PO DAILY [facility] Last Admin: 04/24/17 09:43 Dose: 1,000 intlu Enoxaparin Sodium (Lovenox) 40 mg SC DAILY [facility] PRN Reason: Protocol Last Admin: 04/24/17 09:42 Dose: 40 mg Hydrochlorothiazide (Microzide) 12.5 mg PO DAILY [facility] Last Admin: 04/23/17 11:31 Dose: Not Given Sodium Chloride (Sodium Chloride 0.9%) 1,000 mls @ 150 mls/hr IV .Q6H40M [facility] Last Admin: 04/24/17 02:00 Dose: 150 mls/hr Losartan Potassium (Cozaar) 50 mg PO DAILY [facility] Last Admin: 04/24/17 09:40 Dose: 50 mg Metoprolol Tartrate (Lopressor) 50 mg PO DAILY [facility] Last Admin: 04/24/17 09:42 Dose: 50 mg Pantoprazole Sodium (Protonix Ec Tab) 40 mg PO 0600 [facility] Last Admin: 04/24/17 05:33 Dose: 40 mg - Labs Labs: 04/24/17 07:00 04/24/17 07:00 PT 11.3 SECONDS (9.4-12.5) 04/22/17 18:42 INR 0.99 (0.93-1.08) 04/22/17 18:42 - Constitutional Appears: Non-toxic, No Acute Distress - Head Exam Head Exam: ATRAUMATIC, NORMOCEPHALIC - Eye Exam Eye Exam: EOMI, Normal appearance, PERRL. absent: Conjunctival injection, Nystagmus, Periorbital swelling, Periorbital tenderness, Scleral icterus Pupil Exam: NORMAL ACCOMODATION, PERRL. absent: Fixed, Irregular, Unequal - ENT Exam ENT Exam: Mucous Membranes Moist - Neck Exam Neck Exam: Full ROM - Respiratory Exam Respiratory Exam: Clear to Ausculation Bilateral, NORMAL BREATHING PATTERN. absent: Accessory Muscle Use, Rhonchi, Wheezes, Stridor - Cardiovascular Exam Cardiovascular Exam: RRR, +S1, +S2. absent: Murmur - GI/Abdominal Exam GI & Abdominal Exam: Soft, Normal Bowel Sounds. absent: Distended, Firm, Tenderness, Mass, Organomegaly, Pulsatile Mass, Rebound - Extremities Exam Extremities Exam: Full ROM, Normal Inspection. absent: Calf Tenderness, Pedal Edema - Back Exam Back Exam: NORMAL INSPECTION - Neurological Exam Neurological Exam: Alert, Awake, Oriented x3 - Psychiatric Exam Psychiatric exam: Normal Affect, Normal Mood - Skin Skin Exam: Dry, Normal Color, Warm
[2017-04-24 11:55] VITALS: BP 120/65; PULSE 64; TEMP 99.5
--- NOTE | 2017-04-24 12:01 | MRI ---
PROCEDURE: MRI BRAIN WITHOUT CONTRAST HISTORY: r/o stroke COMPARISON: Noncontrast head CT from 04/22/2017. TECHNIQUE: Multiplanar, multisequence MR images of the brain were obtained without intravenous contrast enhancement. FINDINGS: HEMORRHAGE: None DWI: No evidence of an acute or early subacute infarction. BRAIN PARENCHYMA: There are mild chronic microangiopathic changes. There is no mass, mass effect or abnormal extra-axial fluid collection. There is a partially empty sella, otherwise the midline sagittal structures are normal. VENTRICLES: The ventricles are normal in size, shape and configuration. There is a cavum septum pellucidum. CRANIUM: There is normal bone marrow signal pattern. ORBITS: Grossly unremarkable. PARANASAL SINUSES/MASTOIDS: Predominantly clear. VASCULAR SYSTEM: There are normal signal voids in the larger intracranial arteries. OTHER FINDINGS: None. IMPRESSION: No acute intracranial abnormality. Mild chronic microangiopathic changes.
--- NOTE | 2017-04-24 12:57 | CP.PCM.DIS ---
<Mara Gutiérrez - Last Filed: 04/24/17 13:03> Provider - Provider Date of Admission: 04/22/17 20:05 Attending physician: Sidra Truong MD Primary care physician: Eagle Oneill MD Consults: Neuro Cardona Time Spent in preparation of Discharge (in minutes): 35 Diagnosis - Discharge Diagnosis (1) Chest pain Status: Acute (2) Orthostatic dizziness Status: Acute (3) TIA (transient ischemic attack) Status: Acute Hospital Course - Lab Results Lab Results: Most Recent Lab Values WBC 4.6 10^3/ul (4.5-11.0) 04/24/17 07:00 RBC 3.62 10^6/uL (3.5-6.1) 04/24/17 07:00 Hgb 10.7 g/dL (12.0-16.0) L 04/24/17 07:00 Hct 32.7 % (36.0-48.0) L 04/24/17 07:00 MCV 90.3 fl (80.0-105.0) 04/24/17 07:00 MCH 29.6 pg (25.0-35.0) 04/24/17 07:00 MCHC 32.7 g/dl (31.0-37.0) 04/24/17 07:00 RDW 11.8 % (11.5-14.5) 04/24/17 07:00 Plt Count 264 10^3/uL (120.0-450.0) 04/24/17 07:00 MPV 9.3 fl (7.0-11.0) 04/24/17 07:00 Gran % 36.5 % (50.0-68.0) L 04/24/17 07:00 Lymph % (Auto) 55.6 % (22.0-35.0) H 04/24/17 07:00 [place] % (Auto) 6.6 % (1.0-6.0) H 04/24/17 07:00 Eos % (Auto) 0.9 % (1.5-5.0) L 04/24/17 07:00 Baso % (Auto) 0.4 % (0.0-3.0) 04/24/17 07:00 Gran # 1.66 (1.4-6.5) 04/24/17 07:00 Lymph # (Auto) 2.5 (1.2-3.4) 04/24/17 07:00 [place] # (Auto) 0.3 (0.1-0.6) 04/24/17 07:00 Eos # (Auto) 0.0 (0.0-0.7) 04/24/17 07:00 Baso # (Auto) 0.02 K/mm3 (0.0-2.0) 04/24/17 07:00 PT 11.3 SECONDS (9.4-12.5) 04/22/17 18:42 INR 0.99 (0.93-1.08) 04/22/17 18:42 Sodium 145 mmol/L (132-148) 04/24/17 07:00 Potassium 3.6 mmol/L (3.6-5.0) 04/24/17 07:00 Chloride 112 mmol/L (98-107) H 04/24/17 07:00 Carbon Dioxide 24 mmol/L (21-33) 04/24/17 07:00 Anion Gap 13 (10-20) 04/24/17 07:00 BUN 6 mg/dL (7-21) L 04/24/17 07:00 Creatinine 0.7 mg/dl (0.7-1.2) 04/24/17 07:00 Est GFR ( Amer) > 60 04/24/17 07:00 Est GFR (Non-Af Amer) > 60 04/24/17 07:00 POC Glucose (mg/dL) 83 mg/dL (65-110) 04/24/17 08:02 Random Glucose 91 mg/dL (70-110) 04/24/17 07:00 Calcium 8.7 mg/dL (8.4-10.5) 04/24/17 07:00 Phosphorus 3.5 mg/dL (2.5-4.5) 04/22/17 18:42 Magnesium 2.0 mg/dL (1.7-2.2) 04/22/17 18:42 Total Bilirubin 0.7 mg/dL (0.2-1.3) 04/24/17 07:00 AST 27 U/L (14-36) 04/24/17 07:00 ALT 25 U/L (7-56) 04/24/17 07:00 Alkaline Phosphatase 52 U/L (38-126) 04/24/17 07:00 Troponin I < 0.01 ng/mL 04/23/17 15:10 Total Protein 5.9 g/dL (5.8-8.3) 04/24/17 07:00 Albumin 3.2 g/dL (3.0-4.8) 04/24/17 07:00 Globulin 2.7 gm/dL 04/24/17 07:00 Albumin/Globulin Ratio 1.2 (1.1-1.8) 04/24/17 07:00 Triglycerides 62 mg/dL (35-160) 04/22/17 18:42 Cholesterol 180 mg/dL (130-200) 04/22/17 18:42 LDL Cholesterol Direct 86 mg/dL (0-129) 04/22/17 18:42 HDL Cholesterol 67 mg/dL (29-60) H 04/22/17 18:42 Free T4 1.16 ng/dL (0.78-2.19) 04/22/17 18:42 TSH 3rd Generation 3.46 mIU/mL (0.46-4.68) 04/22/17 18:42 Urine Color Straw (YELLOW) 04/22/17 19:55 Urine Appearance Clear (CLEAR) 04/22/17 19:55 Urine pH 6.5 (4.7-8.0) 04/22/17 19:55 Ur Specific [place] <= 1.005 (1.005-1.035) 04/22/17 19:55 Urine Protein Negative mg/dL (<30 mg/dL) 04/22/17 19:55 Urine Glucose (UA) Negative mg/dL (NEGATIVE) 04/22/17 19:55 Urine Ketones Negative mg/dL (NEGATIVE) 04/22/17 19:55 Urine Blood Trace-intact (NEGATIVE) H 04/22/17 19:55 Urine Nitrate Negative (NEGATIVE) 04/22/17 19:55 Urine Bilirubin Negative (NEGATIVE) 04/22/17 19:55 Urine Urobilinogen 0.2 E.U./dL (<1 E.U./dL) 04/22/17 19:55 Ur Leukocyte Esterase Small [place]ina/uL (NEGATIVE) H 04/22/17 19:55 Urine RBC 0 - 2 /hpf (0-2) 04/22/17 19:55 Urine WBC 1 - 3 /hpf (0-6) 04/22/17 19:55 Ur Epithelial Cells 0 - 2 /hpf (0-5) 04/22/17 19:55 Urine Bacteria Small (NEG) 04/22/17 19:55 - Hospital Course Hospital Course: 61 year old female with a PMHx of hypertension and HLD who presents with complaints of right sided facial numbness, dizziness, and non-radiating "pinching" 6-8/10 chest pain for past few hours. Patient denies any triggering event. She states she was slightly short of breath when her symptoms occurred but hasn't been since she has been in the ED. Code stroke called in ED, NIHSS score 1, not a candidate for tPA. Pt's carotid doppler neg for significant stenosis, CT head neg for acute stroke. MRI head neg for acute intracranial changes. Echocardiogram showed nomral EF, mild diastolic dysfunction. Pt's initial EKG showed Sinus bradycardia 57. No ST/T changes. Vitals stable. Trops neg x3. Pt scheduled with stress test with outpatien cardiology on Wednesday. Pt' s orthostatic vital signs positive, pt's home HCTZ discontinued, given IVF. Pt' s dizziness improved, instructed to eat regular salt diet, dangle legs at bedside before getting up to avoid dizziness. Pt states that she understands. Discharge Exam - Head Exam Head Exam: ATRAUMATIC, NORMOCEPHALIC - Eye Exam Eye Exam: EOMI, PERRL. absent: Conjunctival injection, Nystagmus, Periorbital swelling, Scleral icterus Pupil Exam: NORMAL ACCOMODATION, PERRL. absent: Fixed, Irregular, Unequal - ENT Exam ENT Exam: Mucous Membranes Moist - Neck Exam Neck exam: Full Rom - Respiratory Exam Respiratory Exam: Clear to PA & Lateral, NORMAL BREATHING PATTERN, UNREMARKABLE. absent: Accessory Muscle Use, Chest Wall Tenderness, Rales, Rhonchi, Wheezes, Respiratory Distress - Cardiovascular Exam Cardiovascular Exam: Bradycardia, +S1, +S2. absent: Systolic Murmur - GI/Abdominal Exam GI & Abdominal Exam: Normal Bowel Sounds, Soft. absent: Distended, Firm, Guarding, Organomegaly, Rebound, Rigid, Tenderness - Extremities Exam Extremities exam: normal inspection - Back Exam Back exam: NORMAL INSPECTION - Neurological Exam Neurological exam: Alert, CN II-XII Intact, Normal Gait, Oriented x3, Reflexes Normal - Psychiatric Exam Psychiatric exam: Normal Affect, Normal Mood - Skin Skin Exam: Dry, Normal Color, Warm Discharge Plan - Discharge Medications Prescriptions: Losartan [Cozaar] 50 mg PO DAILY 30 Days tab - Follow Up Plan Condition: IMPROVED Disposition: HOME/ ROUTINE Instructions: Chest Pain (DC), Dizziness, Nonvertigo, (DC) Additional Instructions: - Discontinue taking Hydrochlorothiazide-Losartan combination tablet at home. You are given a new prescription for Losartan that you can take at home. You cannot take hydrochlorothiazide as it causes dizziness. - Take regular salt diet at home, dangle your legs at bedside before getting up to walk. - F/u with Cosmetologist on Wednesday for your scheduled stress test. - Follow up with Neurology outpatient as needed for any recurrence of symptoms. - Follow up with PMD in 1 week. - Return to ER for any concerns. Referrals: Eagle Oneill MD [Primary Care Provider] - <Sidra Truong - Last Filed: 04/24/17 13:24> Provider - Provider Date of Admission: 04/22/17 20:05 Attending physician: Sidra Truong MD Primary care physician: Eagle Oneill MD Hospital Course - Lab Results Lab Results: Most Recent Lab Values WBC 4.6 10^3/ul (4.5-11.0) 04/24/17 07:00 RBC 3.62 10^6/uL (3.5-6.1) 04/24/17 07:00 Hgb 10.7 g/dL (12.0-16.0) L 04/24/17 07:00 Hct 32.7 % (36.0-48.0) L 04/24/17 07:00 MCV 90.3 fl (80.0-105.0) 04/24/17 07:00 MCH 29.6 pg (25.0-35.0) 04/24/17 07:00 MCHC 32.7 g/dl (31.0-37.0) 04/24/17 07:00 RDW 11.8 % (11.5-14.5) 04/24/17 07:00 Plt Count 264 10^3/uL (120.0-450.0) 04/24/17 07:00 MPV 9.3 fl (7.0-11.0) 04/24/17 07:00 Gran % 36.5 % (50.0-68.0) L 04/24/17 07:00 Lymph % (Auto) 55.6 % (22.0-35.0) H 04/24/17 07:00 [place] % (Auto) 6.6 % (1.0-6.0) H 04/24/17 07:00 Eos % (Auto) 0.9 % (1.5-5.0) L 04/24/17 07:00 Baso % (Auto) 0.4 % (0.0-3.0) 04/24/17 07:00 Gran # 1.66 (1.4-6.5) 04/24/17 07:00 Lymph # (Auto) 2.5 (1.2-3.4) 04/24/17 07:00 [place] # (Auto) 0.3 (0.1-0.6) 04/24/17 07:00 Eos # (Auto) 0.0 (0.0-0.7) 04/24/17 07:00 Baso # (Auto) 0.02 K/mm3 (0.0-2.0) 04/24/17 07:00 PT 11.3 SECONDS (9.4-12.5) 04/22/17 18:42 INR 0.99 (0.93-1.08) 04/22/17 18:42 Sodium 145 mmol/L (132-148) 04/24/17 07:00 Potassium 3.6 mmol/L (3.6-5.0) 04/24/17 07:00 Chloride 112 mmol/L (98-107) H 04/24/17 07:00 Carbon Dioxide 24 mmol/L (21-33) 04/24/17 07:00 Anion Gap 13 (10-20) 04/24/17 07:00 BUN 6 mg/dL (7-21) L 04/24/17 07:00 Creatinine 0.7 mg/dl (0.7-1.2) 04/24/17 07:00 Est GFR ( Amer) > 60 04/24/17 07:00 Est GFR (Non-Af Amer) > 60 04/24/17 07:00 POC Glucose (mg/dL) 83 mg/dL (65-110) 04/24/17 08:02 Random Glucose 91 mg/dL (70-110) 04/24/17 07:00 Calcium 8.7 mg/dL (8.4-10.5) 04/24/17 07:00 Phosphorus 3.5 mg/dL (2.5-4.5) 04/22/17 18:42 Magnesium 2.0 mg/dL (1.7-2.2) 04/22/17 18:42 Total Bilirubin 0.7 mg/dL (0.2-1.3) 04/24/17 07:00 AST 27 U/L (14-36) 04/24/17 07:00 ALT 25 U/L (7-56) 04/24/17 07:00 Alkaline Phosphatase 52 U/L (38-126) 04/24/17 07:00 Troponin I < 0.01 ng/mL 04/23/17 15:10 Total Protein 5.9 g/dL (5.8-8.3) 04/24/17 07:00 Albumin 3.2 g/dL (3.0-4.8) 04/24/17 07:00 Globulin 2.7 gm/dL 04/24/17 07:00 Albumin/Globulin Ratio 1.2 (1.1-1.8) 04/24/17 07:00 Triglycerides 62 mg/dL (35-160) 04/22/17 18:42 Cholesterol 180 mg/dL (130-200) 04/22/17 18:42 LDL Cholesterol Direct 86 mg/dL (0-129) 04/22/17 18:42 HDL Cholesterol 67 mg/dL (29-60) H 04/22/17 18:42 Free T4 1.16 ng/dL (0.78-2.19) 04/22/17 18:42 TSH 3rd Generation 3.46 mIU/mL (0.46-4.68) 04/22/17 18:42 Urine Color Straw (YELLOW) 04/22/17 19:55 Urine Appearance Clear (CLEAR) 04/22/17 19:55 Urine pH 6.5 (4.7-8.0) 04/22/17 19:55 Ur Specific [place] <= 1.005 (1.005-1.035) 04/22/17 19:55 Urine Protein Negative mg/dL (<30 mg/dL) 04/22/17 19:55 Urine Glucose (UA) Negative mg/dL (NEGATIVE) 04/22/17 19:55 Urine Ketones Negative mg/dL (NEGATIVE) 04/22/17 19:55 Urine Blood Trace-intact (NEGATIVE) H 04/22/17 19:55 Urine Nitrate Negative (NEGATIVE) 04/22/17 19:55 Urine Bilirubin Negative (NEGATIVE) 04/22/17 19:55 Urine Urobilinogen 0.2 E.U./dL (<1 E.U./dL) 04/22/17 19:55 Ur Leukocyte Esterase Small [place]/uL (NEGATIVE) H 04/22/17 19:55 Urine RBC 0 - 2 /hpf (0-2) 04/22/17 19:55 Urine WBC 1 - 3 /hpf (0-6) 04/22/17 19:55 Ur Epithelial Cells 0 - 2 /hpf (0-5) 04/22/17 19:55 Urine Bacteria Small (NEG) 04/22/17 19:55 Attending/Attestation - Attestation I have personally seen and examined this patient.: Yes I have fully participated in the care of the patient.: Yes I have reviewed all pertinent clinical information, including history, physical exam and plan: Yes Notes (Text): 04/24/17 13:18 Patient was seen and examined with medical office receptionist assistant. Agreed with assessment and plan. Chest pain, EKG was negative for acute ischemic changes.Serial troponins are normal. 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 continue ASA/Statin Dizziness due to orthostatic hypotension, resolved.HCTZ is discontinued. Management plan was discussed in detail with patient and daughter. Education was provided.
--- NOTE | 2017-04-24 13:02 | CP.PCM.PN ---
Subjective - Date & Time of Evaluation Date of Evaluation: 03/24/17 Time of Evaluation: 12:50 - Subjective Subjective: 61 yr old woman who initially presented with right facial numbness and now has resolved symptoms with orthostasis. Reviewed MRI brain findings and they are normal. CT is normal as well. No headache, no other complaints. on exam: Normal neurological examination. no sensory loss no aphasia, no dysarthria. Objective - Vital Signs/Intake and Output Vital Signs (last 24 hours): Temp Pulse Resp BP Pulse Ox 99.5 F 64 20 120/65 100 04/24/17 11:54 04/24/17 11:54 04/24/17 11:54 04/24/17 11:54 04/24/17 11:54 Intake and Output: 04/24/17 04/24/17 06:59 18:59 Intake Total 1950 Balance 1950 - Medications Medications: Current Medications Aspirin (Ecotrin) 81 mg PO DAILY [facility] Last Admin: 04/24/17 09:40 Dose: 81 mg Atorvastatin Calcium (Lipitor) 20 mg PO DIN [facility] Last Admin: 04/23/17 17:29 Dose: 20 mg Cholecalciferol (Vitamin D) 1,000 intlu PO DAILY [facility] Last Admin: 04/24/17 09:43 Dose: 1,000 intlu Enoxaparin Sodium (Lovenox) 40 mg SC DAILY [facility] PRN Reason: Protocol Last Admin: 04/24/17 09:42 Dose: 40 mg Hydrochlorothiazide (Microzide) 12.5 mg PO DAILY [facility] Last Admin: 04/23/17 11:31 Dose: Not Given Sodium Chloride (Sodium Chloride 0.9%) 1,000 mls @ 150 mls/hr IV .[id number] [facility] Last Admin: 04/24/17 02:00 Dose: 150 mls/hr Losartan Potassium (Cozaar) 50 mg PO DAILY [facility] Last Admin: 04/24/17 09:40 Dose: 50 mg Metoprolol Tartrate (Lopressor) 50 mg PO DAILY [facility] Last Admin: 04/24/17 09:42 Dose: 50 mg Pantoprazole Sodium (Protonix Ec Tab) 40 mg PO 0600 [facility] Last Admin: 04/24/17 05:33 Dose: 40 mg - Labs Labs: 04/24/17 07:00 04/24/17 07:00 PT 11.3 SECONDS (9.4-12.5) 04/22/17 18:42 INR 0.99 (0.93-1.08) 04/22/17 18:42 Assessment and Plan - Assessment and Plan (Free Text) Assessment: 61 yr old woman with htn, and orthostasis who presented with right sided facial numbness now resolved. I do not believe this is a TIA and will therefore , will recommend discharge with prn neurology follow up.
--- NOTE | 2017-04-26 10:09 | CARD ---
APPROVED REPORT EKG Measurement Heart [id number] <Conclusion> Sinus bradycardia Otherwise normal ECG
== END 2017-04-24 16:31 | disposition home or self-care (01) ==
LOC: ED 18:29 → INTOOBSV 20:05 → ERH 20:05 → 3RSO 22:34
PROVIDERS: ADMIT Internal Medicine; ATTEND Internal Medicine
DX: I95.1 Orthostatic hypotension (principal); R07.89 Other chest pain; I10 Essential (primary) hypertension; E78.5 Hyperlipidemia, unspecified; E87.6 Hypokalemia; R00.1 Bradycardia, unspecified
CPT/HCPCS: 36415; 70450; 70551; 71045; 80053; 80061; 81001; 82948; 83735; 84100; 84439; 84443; 84484; 85025; 85610; 87086; 93005; 93306; 93880; 99285; G0378; J1650